=== PATIENT | female | born 1935 | race Caucasian/White ===

== ENCOUNTER 2018-04-28 10:50 | Observation (INO) ==
[2018-04-28] MEDS ORDERED: Tdap (Boostrix) Vaccine 0.5 ML SYRINGE IM ONE (11:48)
--- NOTE | 2018-04-28 11:50 | Emergency Department Note ---
Disposition Clinical Impression: Syncope Qualifiers: Syncope type: unspecified Qualified Code(s): R55 - Syncope and collapse Fractured coccyx Qualifiers: Encounter type: initial encounter Fracture type: closed Qualified Code(s): S32.2XXA - Fracture of coccyx, initial encounter for closed fracture Atrial fibrillation Qualifiers: Atrial fibrillation type: chronic Qualified Code(s): I48.2 - Chronic atrial fibrillation Disposition: Admitted As Inpatient Condition: Good Referrals: Lani Escalante MD [Primary Care Provider] - Forms: ED Satisfaction Letter General Adult HPI - General Chief complaint: ED Dizziness Stated complaint: "dizzy, fall out of bed" Time Seen by Provider: 04/28/18 10:58 Source: patient, family Mode of arrival: ambulatory Limitations: no limitations Nursing Notes Reviewed: Yes Vital Signs Reviewed: Yes - History of Present Illness HPI Narrative: Patient presents today for evaluation of dizziness and fall. Fall happened yesterday while she was in [place] on her way back to [place]. Patient was getting of bed to go to the bathroom when she felt lightheaded like she was going to pass out. Patient fell and hit the back of her head. Patient is also injured her back and tailbone. Patient states that she has been sore since then. The dizziness has resolved. The patient's biggest concern is her continued lower coccyx pain. Continues to have a mild headache on the back of her right head. Does not want anything for pain at this time. 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 Pain Scale: 8 - Related Data Allergies Allergy/AdvReac Type Severity Reaction Status Date / Time Penicillins [PCN] Allergy See Verified 01/21/18 11:39 Comments aspirin [ASA] AdvReac See Verified 01/21/18 11:41 Comments celecoxib [From Celebrex] AdvReac See Verified 01/21/18 11:40 Comments Review of Systems: CONSTITUTIONAL: No weight loss, fever, chills, weakness or fatigue. HEENT: Eyes: No visual changes. Ears, Nose, Throat: No hearing loss, difficulty talking or unable to swallow. SKIN: No rash or itching. CARDIOVASCULAR: No chest pain, chest pressure or chest discomfort. No palpitations or edema. RESPIRATORY: No shortness of breath, cough or sputum. GASTROINTESTINAL: No anorexia, nausea, vomiting or diarrhea. No abdominal pain or blood. GENITOURINARY: No burning on urination or hematuria. NEUROLOGICAL: left occipital headache, dizziness, syncope. No paralysis, ataxia , numbness or tingling in the extremities. No change in bowel or bladder control. MUSCULOSKELETAL: pain to lower back and coccyx. Physical Exam General: Well appearing, nontoxic, no acute distress Head: Normocephalic Atraumatic Eyes: PERRL, EOMI ENT: Airway patent, no stridor Neck: supple, no meningismus Chest: Lungs clear to auscultation bilateral Cardiac: Regular rate and rhythm, no murmurs, rubs or gallops Abdomen: soft, nontender, nondistended; no guarding, rebound, or tenderness to percussion Musculoskeletal: Calves symmetric, nontender, no palpable cord Skin: No rash, normal skin tone Neuro: Alert and Oriented to person, place, and time; patient has chronic deficit of the left upper and lower face. Decreased sensation as well as ability to raise her eyebrows and as well as smile. No other cranial nerve involvement. Sensation throughout the upper lower extremities intact. Strength to the upper lower extremities 5 out of 5. Finger to nose intact. There is no pronator drift. Course - Reevaluation(s) Reevaluation #1: Patient underwent evaluation for syncope as well as trauma. Patient has no significant intracranial abnormality. Concern for possible coccyx fracture. The radiologist recommended CT scan for further identification. 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 I have discussed this with the patient. No further imaging needed at this point. They are in agreement. I have further discussed the reason that she did not pass out. She states she has had a stent cardiac stress test. She is unsure whether they checked the vasculature of her neck. Episode happened yesterday and did seem to be an isolated episode. Due to the patient's age as well as A. fib and comorbidities I have recommended further admission for evaluation of syncope. Patient and family in agreement. - Consultations Consultation #1: Discussed with hospitalist, Dr. Fortune, patient accepted for admission. Vital Signs Temperature 97.9 F 04/28/18 10:52 Pulse Rate 65 04/28/18 10:52 Respiratory Rate 16 04/28/18 10:52 Blood Pressure 141/78 04/28/18 10:52 O2 Sat by Pulse Oximetry 98 04/28/18 10:52 Temperature 97.9 F 04/28/18 12:07 Pulse Rate 65 04/28/18 12:07 Respiratory Rate 16 04/28/18 12:07 Blood Pressure 141/78 04/28/18 12:07 O2 Sat by Pulse Oximetry 93 04/28/18 12:07 Oxygen Delivery Oxygen Delivery Room Air Medical Decision Making - Medical Records Medical records reviewed: Yes I reviewed the patient's medical records. - Lab Data Lab results reviewed: Yes I reviewed the patient's lab results. Result diagrams: 04/28/18 12:01 04/28/18 12:01 Lab Results 04/28/18 04/28/18 04/28/18 Range/Units 12: 12: 12:01 WBC 5.8 (4.3-11.1) K/mcL RBC 4.23 (3.82-4.97) M/mcL Hgb 13.1 (11.5-15.4) g/dL Hct 38.5 (35.3-44.9) % MCV 91.0 (83.0-100.0) fL MCH 31.0 (28.0-33.3) pg MCHC 34.0 (31.6-35.5) g/dL RDW 13.5 (11.5-14.5) % Plt Count 208 (140-400) K/mcL MPV 9.1 L (9.4-12.4) fL Immature Gran % 0.2 (0-4) % Seg Neutrophils % 62.0 % Lymphocytes % 23.6 % Monocytes % 11.5 % Eosinophils % 2.2 % Basophils % 0.5 % Neutrophils # 3.6 (1.6-8.9) K/mcL Lymphocytes # 1.4 (0.6-4.6) K/mcL Monocytes # 0.7 (0.0-1.3) K/mcL Eosinophils # 0.1 (0.0-0.6) K/mcL Basophils # 0.0 (0.0-0.2) K/mcL PT 23.6 H (9.4-12.1) Seconds INR 2.1 Sodium 139 (136-145) mEq/L Potassium 3.4 L (3.5-5.1) mEq/L Chloride 105 (98-107) mEq/L Carbon Dioxide 25 (23-29) mEq/L BUN 21 (8-23) mg/dL Creatinine 1.24 H (0.60-1.20) mg/dL Est GFR ( Amer) 50 L (> 60) Est GFR (Non-Af Amer) 41 L (> 60) BUN/Creatinine Ratio 17 (6-26) Glucose 118 H (70-105) mg/dL Calculated Osmolality 292 (280-300) Calcium 9.6 (8.6-10.3) mg/dL Troponin I < 0.03 (< 0.04) ng/mL - Radiology Data Radiology results reviewed: Yes I reviewed the patient's radiology results. - EKG Data EKG #1 EKG attestation: Yes I reviewed and interpreted this EKG. EKG results narrative: EKG shows atrial fibrillation with ventricular rate of 75. QRS 90. QTC 432. No significant ST elevations or depressions.
[2018-04-28 12:13] LABS: Basophils % 0.5 %; Eosinophils # 0.1 K/mcL (0.0-0.6); Eosinophils % 2.2 %; Hematocrit 38.5 % (35.3-44.9); Hemoglobin 13.1 g/dL (11.5-15.4); Immature Granulocytes % 0.2 % (0-4); Lymphocytes # 1.4 K/mcL (0.6-4.6); Lymphocytes % 23.6 %; Mean Platelet Volume 9.1 fL (9.4-12.4); Monocytes # 0.7 K/mcL (0.0-1.3); Monocytes % 11.5 %; Neutrophils # 3.6 K/mcL (1.6-8.9); Platelet Count 208 K/mcL (140-400); Red Blood Count 4.23 M/mcL (3.82-4.97); Red Cell Distribution Width 13.5 % (11.5-14.5)
[2018-04-28 12:24] LABS: INR 2.1; Prothrombin Time 23.6 Seconds (9.4-12.1)
[2018-04-28 12:35] LABS: Troponin I < 0.03 ng/mL (< 0.04)
[2018-04-28 12:36] LABS: BUN/Creatinine Ratio 17 (6-26); Blood Urea Nitrogen 21 mg/dL (8-23); Calcium 9.6 mg/dL (8.6-10.3); Carbon Dioxide 25 mEq/L (23-29); Chloride 105 mEq/L (98-107); Glucose 118 mg/dL (70-105); Osmolality,Calculated 292 (280-300); Potassium 3.4 mEq/L (3.5-5.1); Sodium 139 mEq/L (136-145); eGFR For African Americans 50 (> 60); eGFR For Non-African Americans 41 (> 60)
[2018-04-28] MEDS ORDERED: Naloxone 0.4 MG/ML INJ IVP PRN (13:53)
[2018-04-28 13:55] LABS: Bilirubin,Urine Negative (Negative); Blood,Urine Negative (Negative); Clarity,Urine Clear (Clear); Color,Urine Yellow (Yellow); Glucose,Urine (UA) Normal (Normal); Ketones,Urine Negative (Negative); Leukocyte Esterase,Urine Small (Negative); Nitrite,Urine Negative (Negative); PH,Urine 6.5 pH Units (5.0-8.0); Protein,Urine Negative (Neg-Trace); Specific Gravity,Urine 1.015 (1.010-1.025); Urobilinogen,Urine Normal (Normal)
[2018-04-28 13:57] LABS: Bacteria,Urine None Seen per hpf (None-Few); Hyaline Casts,Urine None Seen per lpf (None-Few); RBC,Urine 0-3 per hpf (0-3); Squamous Epithelial Cell,Urine Moderate per lpf (None-Few)
[2018-04-28] MEDS ORDERED: *HR* HYDROcodone/Acet 7.5/325 mg TABLET PO PRN (14:06)
[2018-04-28] MEDS ORDERED: ALPRAZolam 0.5 MG TABLET PO PRN (14:08)
--- NOTE | 2018-04-28 14:23 | Internal Med History&Physical ---
<Lavern Freeman Jose - Last Filed: 04/28/18 15:12> Date of Encounter: 04/28/18 Time of Encounter: 14:19 Internal Medicine - H&P: HPI Chief complaint: Syncopal fall with injuries Admitted From: Home Plans for Post Hospital Care: Home History of present illness: Ms. Irvin is a 82 year old female with hx of Afib, HTN, bilat lower ext edema. and Cody's Palsy. The patient was in [place] and was about to travel home. She woke up in the morning to go to the bathroom and felt dizzy. She indicated that she has had dizziness before but it was due to a heart medication change/adjustment. She is alert and oriented x 3, No focal deficits noted, except she does have left sided facial drooping of eye and lips due to Cody's Palsy. Eye automatically stays closed. Small area soft tissue swelling and bruising to the back of head. Will get neuro checks on the floor. The patient had cardiac work up over the past year. in 02/2017, the carotid duplex showed: right side, non-stenotic plaque on right bifurcation, essentially normal. Stress was completed in 01/13 and showed Mild intensity resting perfusion defect involving the anterior wall. Mild-moderate intensity stress perfusion defect involving the mid-distal anterior wall. EF 70%, no transient ischemia noted. Patient denies having a heart cath for many years. States her last one was at [facility]. Pharmacological stress in the am. The patient also has a ?mild coccyx fracture. EKG showed AFIB with rate of 75. History of Cody's palsy. PT/OT consults placed due to the patient's decreased mobiltiy. The patient lives alone but has a dtr who will stay with her during her recovery. The patient has severe pedal edema bilat, she indicated that it has been present since she had her knees operated on. Past Med Surg Social Fam HX - Past Medical History Medical history: atrial fibrillation, hyperlipidemia, hypertension Psychiatric history: no psych history - Past Surgical History Additional surgical history: knee sx x2, - Social History Smoking Status: Never smoker Smokeless Tobacco Status: No Alcohol use: none Drug use: none Internal Medicine - H&P: Meds ALPRAZolam [Xanax 0.5 MG Tablet] 0.5 mg PO BID PRN 04/28/18 [History] Alendronate Sodium 70 mg PO SA 04/28/18 [History] Amlodipine Besylate 10 mg PO DAILY 04/28/18 [History] Atorvastatin [Lipitor] 20 mg PO DAILY 04/28/18 [History] Calcium Crb,Cit/D3/Min34/Casimiro [Citracal + Bone Density Tablet] 1 each PO DAILY 04/28/18 [History] Chlorthalidone 25 mg PO DAILY 04/28/18 [History] Fluticasone Propionate Nasal [Flonase] 2 spray NS DAILY PRN 04/28/18 [History] Furosemide [Lasix] 20 mg PO Q48H 04/28/18 [History] Glucosamine/D3/Boswellia Diane [Osteo Bi-Flex Tablet] 1 tab PO DAILY 04/28/18 [ History] Multivit-Min/Iron/Folic/Lutein [Centrum Silver Women Tablet] 1 tab PO DAILY 11/15 [History] Omeprazole [PriLOSEC] 40 mg PO DAILY 04/28/18 [History] Potassium Chloride 20 meq PO DAILY 04/28/18 [History] Tramadol HCl/Acetaminophen [Ultracet Tablet] 2 tab PO Q6H PRN 04/28/18 [History] Vit C/Vit E AC/Lut/Copper/Zinc [Preservision Lutein Softgel] 1 cap PO BID [History] Warfarin Sodium 2 mg PO SUMOWETHFR 04/28/18 [History] Warfarin Sodium [Warfarin Sodium] 1 mg PO TUSA 04/28/18 [History] 3 Allergy/AdvReac Type Severity Reaction Status Date / Time Penicillins [PCN] Allergy See Verified 04/28/18 13:51 Comments aspirin [ASA] AdvReac See Verified 04/28/18 13:51 Comments celecoxib [From Celebrex] AdvReac See Verified 01/21/18 11:40 Comments cephalexin AdvReac Fever Verified 04/28/18 13:51 All Systems PM: A 10-system review of systems was performed and is negative for pertinent findings except as documented above in the HPI. - Constitutional Constitutional: falls, no chills, no fever(s), no night sweats - EENT Eyes: no change in vision, no discharge, no pain, no photophobia Ears: no ear discharge, no ear pain, no tinnitus Nose, mouth and throat: no dysphagia, no nasal discharge, no neck pain, no sore throat - Cardiovascular Cardiovascular ROS IM: irregular heart rhythm, lightheadedness, syncope, no chest pain, no diaphoresis, no dyspnea, no palpitations - Respiratory Respiratory: no cough, no dyspnea, no wheezing, no excessive phlegm production - Gastrointestinal Gastrointestinal: no abdominal pain, no diarrhea, no hematemesis, no hematochezia, no melena, no nausea, no vomiting - Genitourinary Genitourinary: no change in urinary stream, no dysuria, no flank pain, no hematuria - Musculoskeletal Musculoskeletal ROS IM: no numbness, no tingling - Integumentary Integumentary IM: no rash, no unusual bruising - Neurological Neurological ROS: no confusion, no convulsions, no focal weakness, no numbness, no tingling, no tremor(s) - Hematologic/Lymphatic Hematologic/Lymphatic: no easy bruising - Constitutional Vitals: Temp Pulse Resp BP Pulse Ox 97.9 F 65 16 141/78 93 04/28/18 12:04/28/18 12:04/28/18 12:07 04/28/18 12:04/28/18 12:07 General appearance: Present: cooperative, A&O X 3, answers questions appropriately - Head Head exam: Present: atraumatic, normocephalic - Eye Eye exam: Present: PERRL, conjuntiva pink, sclera anicteric Pupils: Present: PERRL - Neck Neck exam general surgery: Present: supple, trachea midline. Absent: lymphadenopathy - Respiratory Respiratory exam: Present: CTAB. Absent: accessory muscle use, rales, rhonchi, wheezes - Cardiovascular Cardiovascular exam: Present: irregular rhythm, +S1, +S2. Absent: diastolic murmur, gallop, rubs, systolic murmur - GI/Abdominal GI/Abdominal exam: Present: normal bowel sounds, soft, no peritoneal signs. Absent: distended, tenderness - Extremities Exam Extremities exam: Present: pedal edema (Severe pedal edema to bilat lower legs, she indicated that preset since knee surgeries), warm, radial pulses palpable and symmetrical. 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 Absent: pronater drift, speech deficit - Skin Skin exam: Present: dry, intact Internal Med - H&P Results - Labs CBC & Chem 7: 04/28/18 12:01 04/28/18 12:01 Labs: Urine 04/28/18 Range/Units 13:45 Urine Color Yellow (Yellow) Urine Clarity Clear (Clear) Urine pH 6.5 (5.0-8.0) pH Units Ur Specific [place] 1.015 (1.010-1.025) Urine Protein Negative (Neg-Trace) mg/dL Urine Glucose (UA) Normal (Normal) mg/dL - Assessment and plan (1) Syncope and collapse Current Visit: Yes Status: Acute Assessment and plan: Head and sacral injury after fall.The patient CT of head showed no acute findings. Ct of sacrum showed a possible mild coccygeal fracture Will get stress test to find etiology of the fall. Ortho static bp's daily Cardiac monitoring Neuro checks q shift Up with assist only PT/OT consult (2) Fractured coccyx Current Visit: Yes Status: Acute Assessment and plan: Pain control with oral hydromorphone PT/OT to evaluate and treat. 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 Chronic left facial drooping (5) Bilateral lower extremity edema Current Visit: Yes Status: Chronic Assessment and plan: No hx of HF, edema likely due to venous stasis 2/2 bilat knee surgies. BNP in am (6) HTN (hypertension) Current Visit: Yes Status: Chronic Assessment and plan: Bp is marginally controlled at 141/78 Continue home meds-Amlodipine Qualifiers: Hypertension type: essential hypertension Qualified Code(s): I10 - Essential (primary) hypertension - Time Spent With Patient Total time spent is greater than 50% in coordination of care (as documented) at patient's floor/unit and/or counseling patient: 25 - 35 minutes <Justen Fortune - Last Filed: 04/28/18 15:40> Date of Encounter: 04/28/18 Time of Encounter: 15:35 Internal Medicine - [facility]: [facility] History of present illness: Ms. Irvin is a 82 year old female Past Med Surg Social Fam HX - Additional Family History Additional family history: Family history reviewed and found to be noncontributory at this time. All Systems PM: A 10-system review of systems was performed and is negative for pertinent findings except as documented above in the HPI. - Constitutional Vitals: Temp Pulse Resp BP Pulse Ox 97.7 F 77 15 142/83 96 04/28/18 15:02 04/28/18 15:02 04/28/18 15:02 04/28/18 15:02 04/28/18 15:02 Internal Med - H&P Results - Labs CBC & Chem 7: 04/28/18 12:01 04/28/18 12:01 Labs: Urine 04/28/18 Range/Units 13:45 Urine Color Yellow (Yellow) Urine Clarity Clear (Clear) Urine pH 6.5 (5.0-8.0) pH Units Ur Specific [place] 1.015 (1.010-1.025) Urine Protein Negative (Neg-Trace) mg/dL Urine Glucose (UA) Normal (Normal) mg/dL - Attending Attestation I examined this patient and my medical decision-making was reviewed with the Nurse Practitioner, Lavern Freeman. I agree with the documented findings, disposition and treatment plan as described with any changes as documented below. 82-year-old female patient with history of atrial fibrillation, on anti- correlation with Coumadin, breast biopsy, hypertension and hyperlipidemia presented to the ER today with complaints of pain in her coccygeal region. She had slid down in her bed yesterday when she stood up and felt dizzy. She began to have pain in her coccygeal region since then. She denies passing out. She denies any prodromal symptoms besides lightheadedness. No palpitations. No chest pain. No blurred vision. No focal weakness or numbness. On examination, patient has left-sided Cody's heart sounds are normal. She does have irregularly irregular rhythm. Breath sounds are normal. She does have pedal edema. CT of the head was negative. CT of the coccyx shows possible mid coccygeal fracture. PT 23.6, INR 2.1, potassium 3.4. Troponin less than 0.03 Presyncope and fall: Most likely orthostatic as it ever happened when patient stood up from a lying down position. Will check orthostatic blood pressure. Patient has previously had Holter monitor which showed bradycardia. Her medications had been adjusted at that time. We will continue to monitor her with telemetry to evaluate for any episodes of bradycardia. Atrial fibrillation: Rate controlled. Continue anticoagulation with Coumadin. CT of the head does not show any acute bleed. Possible coccygeal bone fracture: Supportive care. Pain control. Chronic kidney disease: Creatinine is at her baseline. Hypokalemia: Likely due to Lasix use. We will replete. - Time Spent With Patient Total time spent is greater than 50% in coordination of care (as documented) at patient's floor/unit and/or counseling patient:
[2018-04-28] MEDS ORDERED: TRAMADOL HCL PO PRN (15:42)
[2018-04-28] MEDS ORDERED: ACETAMINOPHEN PO PRN (15:42)
[2018-04-28] MEDS ORDERED: [UNRECOGNIZED DRUG - OTHER] PO PRN (15:42)
[2018-04-28] MEDS ORDERED: *HR* Warfarin 2 MG TABLET PO SCH (18:00)
[2018-04-28] MEDS ORDERED: Warfarin perPT PO PRN (18:00)
[2018-04-29 05:33] LABS: Basophils % 0.7 %; Eosinophils # 0.2 K/mcL (0.0-0.6); Eosinophils % 3.4 %; Hematocrit 34.2 % (35.3-44.9); Hemoglobin 11.6 g/dL (11.5-15.4); Immature Granulocytes % 0.2 % (0-4); Lymphocytes # 1.4 K/mcL (0.6-4.6); Mean Corpuscular HGB Conc 33.9 g/dL (31.6-35.5); Mean Corpuscular Hemoglobin 30.4 pg (28.0-33.3); Mean Corpuscular Volume 89.8 fL (83.0-100.0); Mean Platelet Volume 9.3 fL (9.4-12.4); Monocytes # 0.7 K/mcL (0.0-1.3); Monocytes % 12.3 %; Neutrophils # 3.2 K/mcL (1.6-8.9); Platelet Count 210 K/mcL (140-400); Red Blood Count 3.81 M/mcL (3.82-4.97); Red Cell Distribution Width 13.4 % (11.5-14.5); Segmented Neutrophils % 57.4 %
[2018-04-29 05:40] LABS: INR 2.1
[2018-04-29 05:56] LABS: BUN/Creatinine Ratio 17 (6-26); Blood Urea Nitrogen 17 mg/dL (8-23); Calcium 9.2 mg/dL (8.6-10.3); Carbon Dioxide 26 mEq/L (23-29); Chloride 105 mEq/L (98-107); Cholesterol 113 mg/dL (< 200); Glucose 111 mg/dL (70-105); HDL Cholesterol 38 mg/dL (40-59); LDL Cholesterol,Calculated 55 mg/dL (0-99); Osmolality,Calculated 290 (280-300); Potassium 3.6 mEq/L (3.5-5.1); Sodium 139 mEq/L (136-145); Triglycerides 98 mg/dL (< 150); eGFR For African Americans > 60 (> 60); eGFR For Non-African Americans 51 (> 60)
[2018-04-29] MEDS ORDERED: amLODIPine 5 MG TABLET PO SCH (09:00)
[2018-04-29] MEDS ORDERED: Multivit/Ca/Min/Fe/FA 1 TAB TABLET PO SCH (09:00)
[2018-04-29] MEDS ORDERED: OSTEO BI FLEX PO SCH (09:00)
[2018-04-29 11:38] VITALS: BP 118/75
--- NOTE | 2018-04-29 14:08 | Discharge Summary ---
- NOTES TO OUTPATIENT PROVIDER Notes to Outpatient Provider: Near syncope, workup negative; now on home health services Orders not resulted at time of discharge: Pending orders 04/30/18 04:00 INR/PT [Prothrombin Time INR] [COAG] AM 0400 Prothrombin Time INR [COAG] AM 0400 05/01/18 04:00 INR/PT [Prothrombin Time INR] [COAG] AM 0400 05/02/18 04:00 INR/PT [Prothrombin Time INR] [COAG] AM 0400 05/03/18 04:00 INR/PT [Prothrombin Time INR] [COAG] AM 0400 Date of Encounter: 04/29/18 Time of Encounter: 14:09 - Discharge Diagnosis (1) Near syncope Priority: Primary Status: Acute (2) CKD (chronic kidney disease) Priority: Secondary Status: Chronic Qualifiers: Chronic kidney disease stage: stage 3 (moderate) Qualified Code(s): N18.3 - Chronic kidney disease, stage 3 (moderate) (3) Afib Priority: Secondary Status: Chronic Qualifiers: Atrial fibrillation type: chronic Qualified Code(s): I48.2 - Chronic atrial fibrillation (4) Bilateral lower extremity edema Priority: Secondary Status: Chronic (5) HTN (hypertension) Priority: Secondary Status: Chronic Qualifiers: Hypertension type: essential hypertension Qualified Code(s): I10 - Essential (primary) hypertension Hospital course: Ms. Irvin is a 82 year old female with near-syncope and dizziness. Routine labs, EKG, CT head showed no acute abnormality. XRAy of sacrum/coccyx showed a small coccygeal fracture. PT evaluation recommended [employer], referral completed. Echocardiogram showed preserved EF and indeterminate diastolic function. Orthostatic vital signs were negative. Carotid Doppler from 2017 showed essentially normal B/L carotids. She remained stable, does have chronic pedal edema, likely venous insufficiency. Plan of care d/w patient and her family, agreeable for discharge with outpatient f/up. Discharge discussed with: patient, family, nurse, case management - Time Spent with Patient Total time spent providing and/or coordinating discharge services: Greater than 30 minutes (40 min) - Discharge Medications Home Medications: ALPRAZolam [Xanax 0.5 MG Tablet] 0.5 mg PO BID PRN 04/28/18 [History] Alendronate Sodium 70 mg PO SA 04/28/18 [History] Amlodipine Besylate 10 mg PO DAILY 04/28/18 [History] Atorvastatin [Lipitor] 20 mg PO DAILY 04/28/18 [History] Calcium Crb,Cit/D3/Min34/Casimiro [Citracal + Bone Density Tablet] 1 each PO DAILY 04/28/18 [History] Chlorthalidone 25 mg PO DAILY 04/28/18 [History] Fluticasone Propionate Nasal [Flonase] 2 spray NS DAILY PRN 04/28/18 [History] Furosemide [Lasix] 20 mg PO Q48H 04/28/18 [History] Glucosamine/D3/Boswellia Diane [Osteo Bi-Flex Tablet] 1 tab PO DAILY 04/28/18 [ History] Multivit-Min/Iron/Folic/Lutein [Centrum Silver Women Tablet] 1 tab PO DAILY 11/15 [History] Omeprazole [PriLOSEC] 40 mg PO DAILY 04/28/18 [History] Potassium Chloride 20 meq PO DAILY 04/28/18 [History] Tramadol HCl/Acetaminophen [Ultracet Tablet] 2 tab PO Q6H PRN 04/28/18 [History] Vit C/Vit E AC/Lut/Copper/Zinc [Preservision Lutein Softgel] 1 cap PO BID [History] Warfarin Sodium 2 mg PO SUMOWETHFR@1800 04/28/18 [History] Warfarin [Coumadin] 1 mg PO TUSA@1800 04/29/18 [History] Allergies/Adverse Reactions: 3 Allergy/AdvReac Type Severity Reaction Status Date / Time Penicillins [PCN] Allergy See Verified 04/28/18 13:51 Comments aspirin [ASA] AdvReac See Verified 04/28/18 13:51 Comments celecoxib [From Celebrex] AdvReac See Verified 01/21/18 11:40 Comments cephalexin AdvReac Fever Verified 04/28/18 13:51 Date of admission: 04/28/18 13:02 Primary care physician: Lani Will Consults: 04/28/18 14:01 Consult to Physical Therapy [CONS] Routine Comment: Evaluate, develop and implement POC Reason for Consult: Fall with sacral injury, Does patient have active BEDREST order?: No Is patient medically & hemodynamically stable?: Yes Patient assessed for mobility or mobilized this visit?: No 04/29/18 11:43 Consult to Baby Nurse [CONS] Routine Reason for SW Consult: Home health needs. Discharging clinician: Eleni Hutson Anticipated date of discharge: 04/29/18 - Constitutional Vitals: Temp Pulse Resp BP Pulse Ox 99.2 F 68 16 118/75 97 04/29/18 11:37 04/29/18 11:37 04/29/18 11:37 04/29/18 11:37 04/29/18 11:37 General appearance: Present: cooperative, A&O X 3, answers questions appropriately - Respiratory Respiratory exam: Present: CTAB. Absent: accessory muscle use, rales, rhonchi, wheezes - Cardiovascular Cardiovascular exam: Present: RRR, +S1, +S2. Absent: diastolic murmur, gallop, rubs, systolic murmur - Patient Status Disposition: Home Health Service Condition: Good Functional capacity at discharge: independent ambulation Overall status at discharge: patient is progressing back to baseline - Discharge Instructions Instructions: Atrial Fibrillation (DC) Follow Up With: Lani Escalante MD [Primary Care Provider] - 05/10/18 11:45 am - Diet and Activity Activity: as per physical therapy Diet: low fat, low cholesterol, low salt diet
--- NOTE | 2018-04-29 14:23 | Physician Discharge Referral ---
Home Health/Hosp Referral Info Transfer to: Home Health Attending Provider: Eleni Hutson Provider in Charge Post Discharge: PCP - Diagnosis (1) Near syncope Priority: Primary Status: Acute (2) CKD (chronic kidney disease) Priority: Secondary Status: Chronic (3) Afib Priority: Secondary Status: Chronic (4) Bilateral lower extremity edema Priority: Secondary Status: Chronic (5) HTN (hypertension) Priority: Secondary Status: Chronic - Respiratory Orders Smoking Cessation: Smoking cessation has been advised. For more information, call the [place] Tobacco Quit Line at 2-476-RUQV-NOW. - Diet/Nutrition Diet/Nutrition Orders: Renal, Cardiac - Activity Activity Orders: Ambulate - Services Needed Following services are medically necessary services: Nursing, Physical Therapy, Occupational Therapy - Transfer Medications Home Medications: ALPRAZolam [Xanax 0.5 MG Tablet] 0.5 mg PO BID PRN 04/28/18 [History] Alendronate Sodium 70 mg PO SA 04/28/18 [History] Amlodipine Besylate 10 mg PO DAILY 04/28/18 [History] Atorvastatin [Lipitor] 20 mg PO DAILY 04/28/18 [History] Calcium Crb,Cit/D3/Min34/Casimiro [Citracal + Bone Density Tablet] 1 each PO DAILY 04/28/18 [History] Chlorthalidone 25 mg PO DAILY 04/28/18 [History] Fluticasone Propionate Nasal [Flonase] 2 spray NS DAILY PRN 04/28/18 [History] Furosemide [Lasix] 20 mg PO Q48H 04/28/18 [History] Glucosamine/D3/Boswellia Diane [Osteo Bi-Flex Tablet] 1 tab PO DAILY 04/28/18 [ History] Multivit-Min/Iron/Folic/Lutein [Centrum Silver Women Tablet] 1 tab PO DAILY 11/15 [History] Omeprazole [PriLOSEC] 40 mg PO DAILY 04/28/18 [History] Potassium Chloride 20 meq PO DAILY 04/28/18 [History] Tramadol HCl/Acetaminophen [Ultracet Tablet] 2 tab PO Q6H PRN 04/28/18 [History] Vit C/Vit E AC/Lut/Copper/Zinc [Preservision Lutein Softgel] 1 cap PO BID [History] Warfarin Sodium 2 mg PO SUMOWETHFR@1800 04/28/18 [History] Warfarin [Coumadin] 1 mg PO TUSA@1800 04/29/18 [History] Allergies/Adverse Reactions: 3 Allergy/AdvReac Type Severity Reaction Status Date / Time Penicillins [PCN] Allergy See Verified 04/28/18 13:51 Comments aspirin [ASA] AdvReac See Verified 04/28/18 13:51 Comments celecoxib [From Celebrex] AdvReac See Verified 01/21/18 11:40 Comments cephalexin AdvReac Fever Verified 04/28/18 13:51 Certification: Further, I certify that my clinical findings support that this patient is homebound (i.e. absences from home require considerable and taxing effort and are for medical reasons or christianity services or infrequently or short duration when for other reasons) because: Homebound Reason: Patient requires assistance of a person or device to safely leave home, Leaving home requires considerable and taxing effort due to condition Attestation: My signature below is to certify that this patient is under my care and that I, or nurse practitioner, or a physician's assistant tennis professional working with me, has a face-to -face encounter with this patient.
[2018-04-29] MEDS ORDERED: *HR* Warfarin 2 MG TABLET PO SCH (18:00)
--- NOTE | 2018-04-29 18:22 | Electrocardiograph Report ---
[place] [id number] Test Date: 2018-04-28 Pat Name: Marta Irvin Department: 104 Room: 3B22 Gender: F Talent Development Consultant: KILO : [id number] Requested By: [id number] Order Number: [id number] Reading MD: Oc Lafleur Measurements Intervals [place] Rate: 75 P: MA: 0 QRS: 0 QRSD: 90 T: 60 QT: 403 QTc: 432 Interpretive Statements ATRIAL FIBRILLATION Electronically Signed On 04-29-2018 18:20:24 EDT by Oc Lafleur
[2018-04-30] MEDS ORDERED: *HR* Warfarin 2 MG TABLET PO SCH (18:00)
[2018-04-30] MEDS ORDERED: *HR* Warfarin 1 MG TABLET PO SCH (18:00)
[2018-05-04] MEDS ORDERED: NON-FORMULARY MEDICATION 1 EACH EACH (Alendronate Sodium [Alendronate Sodium] 70 MG) PO SCH (15:42)
== END 2018-04-29 15:05 | disposition home health service (06) ==
LOC: 3BNU 10:50 → EMEROO 10:50 → SUATTDRO 13:02 → 3BNU 14:45
PROVIDERS: ADMIT Internal Medicine; ATTEND Internal Medicine